=== PATIENT | female | born 2000 | race Caucasian/White ===

== ENCOUNTER 2022-11-23 22:22 | Emergency (ER) | payer OTHER ==
[~2022-11-23] VITALS: Ht 157.5 cm; Wt 57.0 kg
[2022-11-23 22:24] VITALS: BP 106/69
[2022-11-24] MEDS ORDERED: ACETAMINOPHEN 325MG TABLET PO ONE (03:30)
== END 2022-11-24 04:06 | disposition home or self-care (01) ==
LOC: ER 22:22
DX: S09.90XA Unspecified injury of head, initial encounter (principal); W18.39XA Other fall on same level, initial encounter; Y93.89 Activity, other specified; Y92.89 Other specified places as the place of occurrence of the external cause; Y99.8 Other external cause status
CPT/HCPCS: 81025; 99284